=== PATIENT | female | born 1995 | race Caucasian/White ===

== ENCOUNTER 2019-04-21 08:57 | Observation (INO) | payer OTHER ==
[~2019-04-21] VITALS: Ht 162.6 cm; Wt 69.1 kg
[2019-04-21] MEDS ORDERED: PNV91TAB6 PO (21:19)
[2019-04-26 09:26] VITALS: BP 112/68; PULSE 85; RESP 18; Ht 162.6 cm; Wt 69.1 kg
--- NOTE | 2019-04-26 11:40 | PN ---
Date/Time of Note Date/Time of Note DATE: 04/26/19 TIME: 11:37 OB Subjective Subjective Subjective G1 at 40 5/7 wga by LMP c/w first trimester us presents for iol for postdates denies lof/vb. efm cat I vitals stable and wnl abd gravid uterus fetus in oblique lie 1. iup-expectant 2. oblique lie-counseled on version with epidural and beta agonist vs expectant management and f/u on 04/27 or 04/29 for iol if in vtx. patient opts for discharge and f/u. advised to go to clinic on 04/28/19. dispo: discharge to home after bpp is reassuring MILESTONE,MAME GRUBER Apr 26, 2019 11:40
== END 2019-04-26 13:20 | disposition home or self-care (01) ==
LOC: EDSTATUS 08:57 → L-D 04-26 09:00 → INTOOBSV 04-26 09:00
PROVIDERS: ADMIT Obstetrics & Gynecology; ATTEND Obstetrics & Gynecology
DX: O48.0 Post-term pregnancy (principal); Z3A.40 40 weeks gestation of pregnancy
CPT/HCPCS: 76818; Z7500; 99217; G0378

== ENCOUNTER 2019-04-21 19:56 | Outpatient (CLI) | payer OTHER ==
[~2019-04-21] VITALS: Ht 162.6 cm; Wt 69.4 kg
[2019-04-21 19:58] VITALS: Ht 162.6 cm; Wt 69.4 kg
[2019-04-21 20:07] VITALS: BP 118/61; PULSE 94; RESP 18
[2019-04-21] MEDS ORDERED: PNV91TAB6 PO (21:19)
--- NOTE | 2019-04-21 21:48 | PN ---
Triage Information Date/Time Reason for visit: Rererred from clinic for antepartum testing Weeks of Gestation 40 weeks /Para Diabetes: none Hypertention: none Objective Vital Signs Date Temp Pulse Resp B/P (MAP) Pulse Ox O2 O2 Flow FiO2 Time Delivery Rate 04/21/19 98.8 94 18 118/61 Room Air 20:07 (80) Heart Rate: 120's Heart Rate Comments Reactive Results/Medications Imaging Results OB ultrasound normal Disposition: Discharge Assessment/Plan Patient reports good movement. Patient denies any vaginal bleeding or leakage of fluid. AISSATOU CADE MD Apr 21, 2019 21:48
--- NOTE | 2019-04-21 22:00 | TRIAGE ---
OB Triage Datetime Report Generated by CPN: 04/21/2019 22:00 Datetime: 04/21/2019 21:10 Stage of : OB Triage Datetime: 04/21/2019 21:07 Stage of : OB Triage Labor Evaluation Frequency: Occasional Monitor Mode: External Duration (sec)2399: 60-80 Pattern: Normal: <= 5 Contractions in 10 Minutes Resting Tone [place]: Relaxed Heart Rate FHR Baseline Rate: 140 Monitor Mode: External US Variability: Moderate 6-25 bpm Accelerations: 15X15 Decelerations: None Category: Category I Pain Assessment Pain Scale: 0 Pain Presence: None/Denies Pain Type: N/A Pain Relief Measures: Comfort Measures Datetime: 04/21/2019 20:46 Stage of : OB Triage Monitor Mode: External Datetime: 04/21/2019 20:38 Stage of : OB Triage Monitor Mode: External Monitor Mode: External US Datetime: 04/21/2019 20:22 Assessment Type: Triage Maternal Assessment Level of Consciousness: Keenly Alert, Responsive DTR's/Clonus: DTRs 2+; No Clonus Headache: Denies Blurred Vision: No Respiratory Effort: Unlabored; Regular Rhythm; Equal Expansion Breath Sounds, Left: Clear and Equal Breath Sounds, Right: Clear and Equal Nausea/Vomiting: Denies RUQ Epigastric Pain: Denies Lower Extremities Edema: None Degree: None Upper Extremities Edema: None Degree: None Facial Edema: None Fall Risk Assessment History of Falling: (0) No Secondary Diagnosis: (0) No Ambulatory Aid: (0) Bedrest/Nurse Assist IV Therapy: (0) No Gait: (0) Normal/Bedrest/Immobile Mental Status: (0) Oriented to Own Ability Fall Score: 0 Fall Risk Score Definition: No Risk: No action required Datetime: 04/21/2019 20:19 Time of Arrival: 04/21/2019 19:45 EGA: 40.0 Arrived By: Ambulatory Arrived From: Home Chief Complaint: Patient sent in by for NST, BPP, EFW Movement: Present Contractions: Denies/Absent Rupture of Membranes: Denies Vaginal Bleeding: None Vaginal Discharge: Denies Recent Sexual Intercouse: Denies Abdominal Trauma: Not Applicable Patient Complaints: None Time Provider Notified: 04/21/2019 21:10 Provider Notified: Violet (Annotations: Data stored by N on behalf of user) Initial Plan: NST, BPP, EFW
== END 2019-04-21 21:50 | disposition home or self-care (01) ==
LOC: OBT 19:56 → L-D 19:57 → OBT 21:50
PROVIDERS: ATTEND Obstetrics & Gynecology
DX: O28.9 Unspecified abnormal findings on antenatal screening of mother (principal); Z3A.40 40 weeks gestation of pregnancy
CPT/HCPCS: 76815; 76818; Z7500; G0463

== ENCOUNTER 2019-04-29 09:30 | Inpatient (IN) | payer OTHER ==
[~2019-04-29] VITALS: Ht 162.6 cm; Wt 69.5 kg
[~2019-04-29 09:30] MED LIST: PNV91TAB6 PO
[2019-04-29 15:50] VITALS: Ht 162.6 cm; Wt 69.5 kg
[2019-04-29 15:51] VITALS: BP 115/67; PULSE 82; RESP 19
[2019-04-29] MEDS ORDERED: OXYTOCIN 30 UNITS/LR 500 ML IV SCH ×2 (16:00)
[2019-04-29] MEDS ORDERED: MISOPROSTOL 200 MCG TAB PR PRN (16:00)
[2019-04-29] MEDS ORDERED: IBUPROFEN 600 MG TAB PO PRN (16:00)
[2019-04-29] MEDS ORDERED: BUTORPHANOL 2 MG INJ IV PRN (16:00)
[2019-04-29] MEDS ORDERED: METHYLERGONOVINE 0.2 MG INJ IM PRN (16:00)
[2019-04-29] MEDS ORDERED: CARBOPROST 250 MCG INJ IM PRN (16:00)
[2019-04-29] MEDS ORDERED: LIDOCAINE 1% (MPF) 30 ML INJ INJ PRN (16:00)
[2019-04-29] MEDS ORDERED: OXYTOCIN 30 UNITS/LR 500 ML IV PRN (16:00)
[2019-04-29] MEDS: LACTATED RINGER'S 1,000 ML IV SCH ×2 (16:40→23:00)
[2019-04-29] MEDS ORDERED: MISOPROSTOL 50 MCG CAPSULE PO SCH (19:00)
--- NOTE | 2019-04-29 22:48 | HP ---
Date/Time of Note Date/Time of Note DATE: 04/29/19 TIME: 22:44 OB - History Hx of Present Free Text/Dictation 23 years old 1 with single intrauterine at 41 weeks and 1day admitted for induction of labor. She states good movement. She denies nausea, vomiting, shortness of breath, chest pain, headache, visual changes, vaginal bleeding or LOF. Chief Complaint: Admission for induction of labor Estimated Due Date: Apr 28, 2019 : 1 Care: Good Care Ultrasounds: Normal mid trimester US Obstetrical Complications: None Medical Complications: None Past Family/Social History * Past Medical, Surgical, Family and Obstetric Histories reviewed from chart. Blood Type: O+ Rubella: immune RPR/VDRL: Negative GBS Status: Negative HBsAG: Negative OB Admission Exam Vital Signs Vital Signs Vital Signs Date Temp Pulse Resp B/P (MAP) Pulse Ox O2 O2 Flow FiO2 Time Delivery Rate 04/29/19 98.8 82 19 115/67 15:51 (83) Physical Exam HEENT: WNL Heart: Rhythm Normal Lungs: Clear Abdomen: WNL Extremities: Normal Reflexes: Normal Cervical Dilatation: None Effacement: 25% Station: -3 Membranes: Intact Heart Rate: 130's Accelerations: Accelerations Present Decelerations: No Decelerations Varibility: Moderate Contractions on Admission: >10 Minutes Apart Intensity: Mild Last 72 hours Lab Results CBC & BMP 04/29/19 16:20 OB Assessment/Plan Other plan: 23 years old 1 with single intrauterine at 41-week and 1 day with LGA admitted for induction of labor -FHR: No sign of metabolic acidosis- Category I -Continuous EFM, toco -CBC, blood type and screen -Analgesia options with R/B/A discussed in detail with patient -Epidural per patient request -Please see the orders -O+/Rubella: Immune -GBS: Negative I have discussed there are greater risk with increase weight compare to the general obstetric population which including but not limited to Labor abnormalities, increase risk of delivery and shoulder dystocia with risk of fracture of the clavicle, humerus and damage to the nerves of the brachial plexus, risk of morbidity for infant and increased risk of maternal morbidity. Admission, procedures, expectations, risks and possible complications have been discussed in detail with the patient. Risk of vaginal delivery including but not limited to bleeding, infection, cervical laceration, placental retention, injury to fetus, blood transfusion, blood transfusion related infection, risk of anesthesia, adhesion, cervical laceration, episiotomy/laceration, possible delivery with risk of bleeding, infection, injury to other organs (bowel, bladder, ureter, vessels, nerves), injury to fetus, blood transfusion, blood transfusion related infection, risk of anesthesia, scar and hernia formation, needs for future , removal of uterus or any other indicated surgery discussed with the patient. She expressed understanding and repeats the risks. All of her questions were answered. She signed the informed consent. PHYSICIAN'S VERIFICATION OF INFORMED CONSENT The patient was counseled regarding the procedure, its indications, risks, potential complications and alternatives and any questions were answered. Consent was obtained. PLANNED PROCEDURE/TREATMENT: Vaginal delivery, episiotomy, repair of laceration possible delivery ANI MANDEL Apr 29, 2019 22:48
[2019-04-30] MEDS: LACTATED RINGER'S 1,000 ML IV SCH ×3 (06:09→20:26)
[2019-04-30] MEDS ORDERED: OXYTOCIN 30 UNITS/LR 500 ML IV SCH (14:00)
--- NOTE | 2019-04-30 19:38 | PREAC ---
Date/Time of Note Date/Time of Note DATE: 04/30/19 TIME: 19:37 Anesthesia Eval and Record Evaluation Time Pre-Procedure Interview DATE: 04/30/19 TIME: 19:37 Age 23 Sex female NPO: 8 hrs Preoperative diagnosis labor Planned procedure epidural Past Medical History Past Medical History: None Surgery & Anesthesia Issues No known issue Meds Anticoagulation: No Beta Jose Luis within 24 hr: No Reason Beta Jose Luis not given: Pt. not on B-Jose Luis Reported Medications Pnv95/Ferrous Fumarate/FA ( Vitamin Tablet) 1 Each Tablet, 1 EACH PO DAILY, TAB 04/21/19 Current Medications Lactated Ringer's 1,000 ml @ 125 mls/hr Q8H IV Last administered on 04/30/19at 14:11; Admin Dose 125 MLS/HR; Start 04/29/19 at 15:54 Butorphanol Tartrate (Stadol) 2 mg Q2H PRN IV .PAIN SCALE 6-10; Start 04/29/19 at 16:00 Lidocaine (Xylocaine 1% (Mpf)) 30 ml ONCE PRN INJ .EPISIOTOMY; Start 04/29/19 at 16:00 Oxytocin/Lactated Ringer's 500 ml @ 500 mls/hr ONCE POST IV ; Start 04/29/19 at 16:00 Oxytocin/Lactated Ringer's 500 ml @ 125 mls/hr POST IV ; Start 04/29/19 at 16:00 Ibuprofen (Motrin) 600 mg ONCE PRN PO .PAIN 1-5; Start 04/29/19 at 16:00 Oxytocin/Lactated Ringer's 500 ml @ 0 mls/hr ONCE PRN IV .VAGINAL BLEEDING; Start 04/29/19 at 16:00 Methylergonovine Maleate (Methergine) 0.2 mg ONCE PRN IM .VAGINAL BLEEDING; Start 04/29/19 at 16:00 Carboprost Tromethamine (Hemabate) 250 mcg ONCE PRN IM .VAGINAL BLEEDING; Start 04/29/19 at 16:00 Misoprostol (Cytotec) 1,[address] .VAGINAL BLEEDING; Start 04/29/19 at 16:00 Misoprostol (Cytotec 50 Mcg Capsule) 50 mcg Q4 PO Last administered on 04/29/19at 19:33; Admin Dose 50 MCG; Start 04/29/19 at 19:00 Oxytocin/Lactated Ringer's 500 ml @ 0 mls/hr FOR INDUCTION IV Last administered on 04/30/19at 14:12; Admin Dose 1 MLS/HR; Start 04/30/19 at 14:00 Meds reviewed: Yes Allergies Coded Allergies: Penicillins (Verified Allergy, Mild, 05/26/10) Allergies Reviewed: Yes Labs/Studies Labs Reviewed: Reviewed by anesthesiologist Result Diagram: 04/29/19 1620 test: N/A Pre-procedure Exam Last vitals Vital Signs Date Temp Pulse Resp B/P (MAP) Pulse Ox O2 O2 Flow FiO2 Time Delivery Rate 04/29/19 98.8 82 19 115/67 15:51 (83) Airway: Adequate mouth opening, Adequate thyromental dist Mallampati: Mallampati III Teeth: Normal Lung: Normal Heart: Normal ASA Physical Status ASA physical status: 2 Emergency: None Pre-operative Attestations Prior to commencing anesthesia and surgery, the patient was re-evaluated, there was verification of: *The patient's identity *The results of appropriate recent lab work and preoperative vital signs *The above evaluation not changing prior to induction *Anesthetic plan, risk benefits, alternative and complications discussed with patient/family; questions answered; patient/family understands, accepts and wishes to proceed. ELY العراقي DO Apr 30, 2019 19:38
[2019-04-30] MEDS ORDERED: NALOXONE (0.4 MG/ML) INJ IV PRN (20:00)
--- NOTE | 2019-04-30 21:35 | PAC ---
Date/Time of Note Date/Time of Note DATE: 04/30/19 TIME: 21:34 Post-Anesthesia Notes Post-Anesthesia Note Last documented vital signs Vital Signs Date Temp Pulse Resp B/P (MAP) Pulse Ox O2 O2 Flow FiO2 Time Delivery Rate 04/29/19 98 80 19 110/65 2100 Activity: WNL Respiratory function: WNL Cardiovascular function: WNL Mental status: Baseline Pain reasonably controlled: Yes Hydration appropriate: Yes Nausea/Vomiting absent: Yes ELY العراقي DO Apr 30, 2019 21:35
[2019-05-01] MEDS: FENTAnyl 2MCG/ML-ROPIV 0.2% 100 ML BAG EPI SCH ×2 (03:09→11:31)
[2019-05-01] MEDS: LACTATED RINGER'S 1,000 ML IV SCH ×2 (03:09→06:32)
--- NOTE | 2019-05-01 13:05 | LDN ---
Date/Time of Note Date/Time of Note DATE: 05/01/19 TIME: 13:03 Delivery Summary Placenta Delivered: Spontaneously Meconium: Thick Episiotomy: No Perineal laceration: 2 Anesthesia type: Epidural Estimated blood loss: 200 Sponge & Needle done & correct: Yes All needle counts correct: Yes Any foreign bodies felt in the: No Delivery Information Apgars 1 Minute: 8 5 Minute: 9 Suctioning Nose & mouth suctioned at dana: Yes Delee suction performed: Yes Umbilical Cord Umbilical cord with: 3 Vessels Cord presentations: no nuchal cord Mother & Baby Disposition Disposition Mom & Baby to Maternity; Good: Yes Baby to NICU: No CODIE FRASER M.D. May 01, 2019 13:04
[2019-05-01 14:45] VITALS: RESP 20
[2019-05-01] MEDS ORDERED: OXYTOCIN 30 UNITS/LR 500 ML IV SCH (14:58)
[2019-05-01] MEDS ORDERED: NACL 0.9% 3 ML SYG IV SCH (15:00)
[2019-05-01] MEDS ORDERED: WITCH HAZEL/GLYCERIN PAD PR PRN (15:00)
[2019-05-01] MEDS ORDERED: LANOLIN HPA 1 PKT TOP PRN (15:00)
[2019-05-01] MEDS ORDERED: OXYCODONE/ASPIRIN (4.88/325) TAB PO PRN (15:00)
[2019-05-01] MEDS ORDERED: MISOPROSTOL 200 MCG TAB PR PRN (15:00)
[2019-05-01] MEDS ORDERED: ONDANSETRON 4 MG INJ IV PRN (15:00)
[2019-05-01] MEDS ORDERED: CARBOPROST 250 MCG INJ IM PRN (15:00)
[2019-05-01] MEDS ORDERED: OXYTOCIN 30 UNITS/LR 500 ML IV PRN (15:00)
[2019-05-01] MEDS ORDERED: METHYLERGONOVINE 0.2 MG INJ IM PRN (15:00)
[2019-05-01] MEDS ORDERED: ZOLPIDEM 5 MG TAB PO PRN (15:00)
[2019-05-01] MEDS ORDERED: SENNA/DOCUSATE NA (8.6MG/50MG) TAB PO PRN (15:00)
[2019-05-01 15:50] VITALS: BP 131/75; PULSE 81; RESP 20
[2019-05-01] MEDS: IBUPROFEN 600 MG TAB PO SCH ×2 (17:53→23:45)
[2019-05-01 20:00] VITALS: BP 102/65; PULSE 89; RESP 20
[2019-05-01] MEDS: SENNA/DOCUSATE NA (8.6MG/50MG) TAB PO SCH (20:41)
[2019-05-02] VITALS: BP 96/56; PULSE 80; RESP 18
[2019-05-02 04:17] VITALS: BP 103/57; PULSE 87; RESP 18
[2019-05-02] MEDS: IBUPROFEN 600 MG TAB PO SCH ×4 (05:48→23:51)
--- NOTE | 2019-05-02 07:31 | PN ---
Date/Time of Note Date/Time of Note DATE: 05/02/19 TIME: 07:28 OB Subjective Subjective Subjective PPD# 1 Patient is doing well. She denies nausea, vomiting, shortness of breath, chest pain, headache. She has been ambulating without difficulty, tolerating regular diet. Pain is well controlled on current medications OB Objective Objective Objective VS - Last 72 Hours, by Label Date Temp Pulse Resp B/P (MAP) Pulse Ox O2 O2 Flow FiO2 Time Delivery Rate 05/02/19 97.8 87 18 103/57 Room Air 04:17 (72) 05/02/19 98.4 80 18 96/56 (69) Room Air 00:00 05/01/19 99.1 89 20 102/65 Room Air 20:00 (77) 05/01/19 98.8 81 20 131/75 Room Air 15:50 (93) 05/01/19 98.7 20 High Flow 14:45 04/29/19 98.8 82 19 115/67 15:51 (83) General: AAO X 3, comfortable, NAD, appropriate mood and affect. ABD: +BS. Soft, non-tender. Uterus 2 cm below umbilicus Flank: No CVA tenderness (B/L) LE: Mild edema. No clubbing, cyanosis, thigh or calf tenderness (B/L). Homans 'sign is negative OB Assessment/Plan Other plan: 23 years old 1 para 1-0-0-1 s/p normal vaginal delivery at 41 weeks and 3 days. PPD#1 - AF, VSS - Baby is doing well, at bed side. She is bonding well - Contraception methods with R/B/A/FR discussed - Continue care - Discharge home tomorrow - Rx and instruction given - Follow up in 2 and 6 weeks at clinic ANI MANDEL May 02, 2019 07:31
--- NOTE | 2019-05-02 07:32 | DS ---
Date/Time of Note Date/Time of Note DATE: 05/02/19 TIME: 07:31 Obstetrical Discharge Record Final Diagnosis Final Diagnosis: Term delivered Other Final Diagnosis 23 years old 1 para 1-0-0-1 s/p normal vaginal delivery at 41 weeks and 3 days. PPD#1. Post course was unremarkable. She is ambulating and tolerating regular diet. She is voiding without difficulty. Pain is controlled on current medication. - AF, VSS - Baby is doing well, at bed side. She is bonding well - Contraception methods with R/B/A/FR discussed - Continue care - Discharge home tomorrow - Rx and instruction given - Follow up in 2 and 6 weeks at clinic Complications Induction: Yes (For postdate) Condition on Discharge Physical Assessment Last Vitals: Vital Signs Date Temp Pulse Resp B/P (MAP) Pulse Ox O2 O2 Flow FiO2 Time Delivery Rate 05/02/19 97.8 87 18 103/57 Room Air 04:17 (72) Voiding: Yes Bowel Movement: Yes Breast: Soft, non-tender Fundus: Firm Calf Tenderness: No Patient Condition: Stable ANI MANDEL May 02, 2019 07:32
[2019-05-02 08:00] VITALS: BP 104/60; PULSE 73; RESP 18
[2019-05-02] MEDS: SENNA/DOCUSATE NA (8.6MG/50MG) TAB PO SCH ×2 (09:20→21:11)
[2019-05-02 15:15] VITALS: BP 107/58; PULSE 85; RESP 18
[2019-05-02 19:35] VITALS: BP 115/67; PULSE 75; RESP 19
[2019-05-03 03:35] VITALS: BP 105/57; PULSE 75; RESP 19
[2019-05-03] MEDS: IBUPROFEN 600 MG TAB PO SCH ×2 (05:30→12:38)
[2019-05-03] MEDS ORDERED: DIPHTH/TET/ACEL PERTUSS (ADULT) 0.5 ML VIAL IM* ONE (09:00)
[2019-05-03] MEDS: SENNA/DOCUSATE NA (8.6MG/50MG) TAB PO SCH (10:49)
--- NOTE | 2019-05-03 11:25 | QN ---
Documentation Comment PPD#2 is stable afebrile tolerates diet No VB +BM +voids VS stable Gen NAD Abd soft NT ND Genitalia No blood at perineum --->Discharge plan CODIE FRASER M.D. May 03, 2019 11:25
--- NOTE | 2019-05-03 11:26 | DS ---
Date/Time of Note Date/Time of Note DATE: 05/03/19 TIME: 11:25 Discharge Summary Admission/Discharge Info Admit Date/Time Apr 29, 2019 at 14:45 Discharge Date/Time 05/03/2019 Discharge Diagnosis Patient Condition: Good Hospital Course uneventful Home Meds Reported Medications Pnv95/Ferrous Fumarate/FA ( Vitamin Tablet) 1 Each Tablet, 1 EACH PO DAILY, TAB 04/21/19 Primary Care Provider Care Physician No Primary Pending Labs Laboratory Tests Test 05/03/19 06:57 White Blood Count 12.0 10^3/ul (4.8-10.8) Red Blood Count 3.14 10^6/ul (4.20-5.40) Hemoglobin 8.3 g/dl (12.0-16.0) Hematocrit 27.1 % (37.0-47.0) Mean Corpuscular Volume 86.3 fl (82.0-101.0) Mean Corpuscular Hemoglobin 26.4 pg (29.0-33.0) Mean Corpuscular Hemoglobin Concent 30.6 g/dl (32.0-37.0) Red Cell Distribution Width 15.3 % (11.5-14.5) Platelet Count 179 10^3/UL (140-415) Mean Platelet Volume 10.7 fl (7.4-10.4) Immature Granulocytes % 0.700 % (0.001-0.429) Neutrophils % 70.5 % (39.0-77.0) Lymphocytes % 19.6 % (15.0-51.0) Monocytes % 5.9 % (0.0-11.0) Eosinophils % 3.0 % (0.0-7.0) Basophils % 0.3 % (0.0-2.0) Nucleated Red Blood Cells % 0.0 /100WBC (0.0-0.0) Immature Granulocytes # 0.090 10^3/ul (0.0-0.031) Neutrophils # 8.5 10^3/ul (1.6-7.5) Lymphocytes # 2.4 10^3/ul (0.8-2.9) Monocytes # 0.7 10^3/ul (0.3-0.9) Eosinophils # 0.4 10^3/ul (0.0-0.5) Basophils # 0.0 10^3/ul (0.0-0.1) Nucleated Red Blood Cells # 0.0 10^3/ul (0.0-0.0) CODIE FRASER M.D. May 03, 2019 11:26
--- NOTE | 2019-05-04 14:11 | DELSUM ---
Delivery Summary A-C Datetime Report Generated by CPN: 05/04/2019 14:10 DELIVERY PERSONNEL Tester Rocket Engine: Duvo, Natasha MATERNAL INFORMATION Delivery Anesthesia: Epidural Medications in Delivery: PITOCIN 30 UNITS Delivery QBL (ml): 200 Placenta Cultured: No Maternal Complications: None LABOR SUMMARY EDC: 04/21/2019 00:00 No. Babies in Womb: 1 Attempted: No Labor Anesthesia: Epidural LABOR INFORMATION Reason for Induction: Postterm Onset of Labor: 04/30/2019 10:35 Complete Dilatation: 05/01/2019 12:09 Cervical Ripening Agents: Cytotec @ Oxytocin: N/A Group B Beta Strep: Negative Antibiotics # of Doses: 0 Steroids Given: None Reason Steroids Not Administered: Not Applicable MEMBRANES Membranes Rupture Method: Spontaneous Rupture of Membranes: 05/01/2019 05:03 Length of Rupture (hr): 7.77 Amniotic Fluid Color: Clear Amniotic Fluid Amount: Small Amniotic Fluid Odor: None STAGES OF LABOR Stage 1 hr: 25 Stage 1 min: 34 Stage 2 hr: 0 Stage 2 min: 40 Stage 3 hr: 0 Stage 3 min: 2 Total Time in Labor hr: 26 Total Time in Labor min: 16 VAGINAL DELIVERY Episiotomy: None Laceration Extension: Second Degree Laceration Type: Perineal Laceration Repair: Yes Initial Vag Sponge Count: 10 Final Vag Sponge Count: 10 Initial Vag Sharps Count: 1 Final Vag Sharps Count: 3 Sponge Count Correct: Yes; Vaginal Sweep Performed BABY A INFORMATION Infant Delivery Date/Time: 05/01/2019 12:49 Method of Delivery: Vaginal Born in Route : No : N/A Forceps: N/A Vacuum Extraction: N/A Shoulder Dystocia : No SHOULDER DYSTOCIA BABY A Infant Delivery Date/Time: 05/01/2019 12:49 PRESENTATION/POSITION BABY A Presentation: Cephalic Cephalic Presentation: Vertex Vertex Position: Left Occipital Anterior Breech Presentation: N/A PLACENTA INFORMATION BABY A Placenta Delivery Time : 05/01/2019 12:51 Placenta Method of Delivery: Spontaneous Placenta Status: Delivered SCORES BABY A Heart Rate 1 min: >100 bpm Resp Effort 1 min: Good Cry Reflex Irritability 1 min: Cough/Sneeze/Pulls Away Muscle Tone 1 min: Active Motion Color 1 min: Body Coffeen, Extremit Blue Resuscitation Effort 1 min: Tactile Stimulation SCORE 1 MIN: 9 Heart Rate 5 min: >100 bpm Resp Effort 5 min: Good Cry Reflex Irritability 5 min: Cough/Sneeze/Pulls Away Muscle Tone 5 min: Active Motion Color 5 min: Body Coffeen, Extremit Blue Resuscitation Effort 5 min: Tactile Stimulation SCORE 5 MIN: 9 INFORMATION BABY A Gestational Age at Delivery: 41.3 Gestational Status: Late Term- 41- 41.6 Weeks Infant Outcome : Liveborn, with signs of life Infant Condition : Stable Infant Sex: Female IDENTIFICATION/MEDS BABY A ID Band Number: [id number] ID Band Location: Right Leg; Left Arm Sensor Applied: Yes Sensor Number: [id number] Sensor Location : Cord Clamp Vitamin K Given : Not Given Erythromycin Given: Not Given WEIGHT/LENGTH BABY A Birthweight (gm): 4150 Weight (lb): 9 Weight (oz): 2 Length (in): 20.00 Infant Length (cm): 50.80 CORD INFORMATION BABY A No. Cord Vessels: 3 Nuchal Cord : N/A Cord Blood Taken: Yes Suction: Mouth; Nose ASSESSMENT BABY A Infant Complications: Meconium Physical Findings at Delivery: Molding of the Head; Within Normal Limits Infant Respirations: Appears Normal Tire Repairer/ALS Called : Yes Care By: Danielle RAPP RN Transferred To: Remains with Mother
== END 2019-05-03 14:00 | disposition home or self-care (01) | DRG 807 ==
LOC: L-D 14:45 → PP1 05-01 14:46
PROVIDERS: ADMIT Obstetrics & Gynecology; ATTEND Obstetrics & Gynecology
PROC: 3E033VJ Introduction of Other Hormone into Peripheral Vein, Percutaneous Approach (ICD-10-PCS; 2019-04-30)
PROC: 10E0XZZ Delivery of Products of Conception, External Approach (ICD-10-PCS; principal; 2019-05-01)
PROC: 0KQM0ZZ Repair Perineum Muscle, Open Approach (ICD-10-PCS; 2019-05-01)
DX: O48.0 Post-term pregnancy (principal); Z37.0 Single live birth; O36.63X0 Maternal care for excessive fetal growth, third trimester, not applicable or unspecified; O70.1 Second degree perineal laceration during delivery; O77.0 Labor and delivery complicated by meconium in amniotic fluid; Z3A.41 41 weeks gestation of pregnancy
CPT/HCPCS: 62322; 76815; 85025; 85610; 85730; 86592; 86850; 86900; 86901; 87340; 99464; J2590; J3010; J7120